=== PATIENT | male | born 1975 | race African-American/Black ===

== ENCOUNTER 2017-07-23 15:35 | Emergency (ER) | payer OTHER | END 2017-07-23 19:30 | disposition home or self-care (01) | LOC: E/R 19:30 | DX: J20.9 Acute bronchitis, unspecified (principal) | CPT/HCPCS: 99284; Z7502 ==

== ENCOUNTER 2018-01-10 16:02 | Emergency (ER) | payer OTHER ==
[2018-01-10] MEDS: KETOROLAC 30 MG INJ IM (18:22)
== END 2018-01-10 19:51 | disposition home or self-care (01) ==
LOC: FTE 16:02
DX: H61.23 Impacted cerumen, bilateral (principal)
CPT/HCPCS: 69209; 96372; 99284-25

== ENCOUNTER 2018-12-28 11:15 | Emergency (ER) | payer MEDICAID, OTHER | END 2018-12-28 12:20 | disposition home or self-care (01) | LOC: FTE 11:15 | DX: H61.23 Impacted cerumen, bilateral (principal) | CPT/HCPCS: 69209; 99283-25 ==